=== PATIENT | male | born 1955 | race Hispanic/Latino ===

== ENCOUNTER → 2019-06-02 | Outpatient (CLI) | payer OTHER ==
[~2019-06-02] MED LIST: ASPI-1197 PO; LISI40TA4 PO; METO25TA6 PO; TEMA30CA PO; atorvastatin PO
== END | disposition home or self-care (01) ==
LOC: OIH 14:56
PROVIDERS: ATTEND Family Medicine
DX: M79.641 Pain in right hand (principal); I70.0 Atherosclerosis of aorta; K57.90 Diverticulosis of intestine, part unspecified, without perforation or abscess without bleeding
CPT/HCPCS: 73130